=== PATIENT | female | born 1950 | race Caucasian/White ===

== ENCOUNTER → 2016-12-28 18:26 | Outpatient (CLI) | payer OTHER ==
[2014-03-30 14:24] VITALS: BMI 25.1
[~2016-12-28 18:26] MED LIST: FLORINEF 0.1 M0.1 MG PO; FLUDROCORTISON0.1 MG PO; FLUVOXAMINE MA100 M1 PO; HYDROCODON-ACE1 EAC7 PO; MIDODRINE HCL10 MG PO; PRILOSEC20 MG PO; SEROQUEL25 MG PO; SYNTHROID50 MCG PO; TENORMIN25 MG PO
== END | disposition home or self-care (01) ==
LOC: D.MAMMO 13:00
DX: Z12.31 Encounter for screening mammogram for malignant neoplasm of breast (principal)

== ENCOUNTER → 2017-07-09 16:53 | Outpatient (CLI) | payer OTHER ==
[2014-03-30 14:24] VITALS: BMI 25.1
[2017-07-09 17:39] LABS: ALBUMIN 3.5 g/dL (3.4-5.0); ALKALINE PHOSPHATASE 94 U/L (46-116); ALT (SGPT) 27 U/L (10-68); BILIRUBIN - TOTAL 0.13 mg/dL (0.2-1.3); CALC OSMOLALITY 286 mosm/kg (275-300); CALCIUM 9.1 mg/dL (8.5-10.1); CARBON DIOXIDE 30.5 mmol/L (21.0-32.0); CHLORIDE - SERUM 104 mmol/L (98-107); CREATININE - SERUM 0.8 mg/dL (0.6-1.3); PROTEIN - SERUM 6.8 g/dL (6.4-8.2); SODIUM 142 mmol/L (136-145); UREA NITROGEN 30 mg/dL (7-18); eGFR NON AFRICAN AMERICAN 76 mL/min (90-120)
[2017-07-09 17:48] LABS: GLUCOSE 59 mg/dL (74-106)
== END | disposition home or self-care (01) ==
LOC: D.LABREF 16:53
PROVIDERS: Internal Medicine
DX: R80.9 Proteinuria, unspecified (principal)

== ENCOUNTER → 2017-12-29 18:09 | Outpatient (CLI) | payer MEDICARE, OTHER ==
[2014-03-30 14:24] VITALS: BMI 25.1
== END | disposition home or self-care (01) ==
LOC: D.MAMMO 09:15
DX: Z12.31 Encounter for screening mammogram for malignant neoplasm of breast (principal)

== ENCOUNTER 2019-01-02 08:00 | Outpatient (CLI) | payer MEDICARE, OTHER ==
[2014-03-30 14:24] VITALS: BMI 25.1
== END 2019-01-02 23:59 | disposition home or self-care (01) ==
LOC: D.MAMMO 08:00
PROVIDERS: ATTEND Internal Medicine
DX: Z12.31 Encounter for screening mammogram for malignant neoplasm of breast (principal)